=== PATIENT | female | born 1995 | race Caucasian/White ===

== ENCOUNTER 2023-12-02 05:58 | Emergency (ER) | payer BC ==
[~2023-12-02] VITALS: Ht 172.7 cm; Wt 102.1 kg
[2023-12-02] MEDS ORDERED: FAMOTIDINE (20 MG) 20 MG TABLET ONE (06:46)
[2023-12-02] MEDS: FAMOTIDINE (20 MG) 20 MG TABLET PO ONE (06:50)
[2023-12-02] MEDS ORDERED: FAMO20TA8 PO (07:22)
[2023-12-02 07:40] VITALS: BP 148/90; TEMP 97.8; O2SAT 100
== END 2023-12-02 07:40 | disposition home or self-care (01) ==
LOC: ER 05:58
DX: K21.9 Gastro-esophageal reflux disease without esophagitis (principal); F17.290 Nicotine dependence, other tobacco product, uncomplicated
CPT/HCPCS: 71045-TC